=== PATIENT | male | born 1990 | race Caucasian/White ===

== ENCOUNTER → 2021-05-05 | Outpatient (CLI) | payer BC, OTHER | LOC: KOH-I 14:30 | DX: M79.661 Pain in right lower leg (principal) | CPT/HCPCS: 93971 ==

== ENCOUNTER → 2021-05-10 | Outpatient (CLI) | payer OTHER, BC | LOC: KOH-I 16:15 | DX: M25.461 Effusion, right knee (principal) | CPT/HCPCS: 73721 ==